=== PATIENT | female | born 1965 | race African-American/Black ===

== ENCOUNTER 2016-08-20 05:27 | Emergency (ER) | payer SELFPAY ==
[~2016-08-20] VITALS: Ht 162.6 cm; Wt 81.6 kg
[2016-08-20 06:48] LABS: Urine Bilirubin Negative (Negative); Urine Blood Negative /uL (Negative); Urine Color Yellow (Yellow); Urine Glucose Normal (Normal); Urine Ketone Negative (Negative); Urine Mucus FEW (None Seen); Urine Nitrite Negative (Negative); Urine RBC <1 /hpf (0 - 4); Urine Squamous Epithelial Cell MOD /hpf (<5); Urine Urobilinogen Normal (Negative); Urine pH 5.5 (5.0-8.0)
[2016-08-20 06:57] LABS: Basophils # (auto) 0.1 uL; Basophils % (auto) 0.7 % (0.0-2.0); DEFINITIVE VIEW TRANSMISSION; Eosinophils # (auto) 0.2 uL; Eosinophils % (auto) 2.2 % (0.0-7.0); Hemoglobin 11.8 g/dL (12.2-16.2); Lymphocytes # (auto) 4.2 uL; Lymphocytes % (auto) 47.3 % (10.0-50.0); Mean Corpuscular Hemoglobin 22.1 pg (28.0-32.0); Mean Corpuscular Hgb Conc. 31.9 g/dL (32.0-36.0); Mean Corpuscular Volume 69.4 fL (80.0-100.0); Mean Platelet Volume 8.7 fL (7.4-10.4); Monocytes # (auto) 0.6 uL; Monocytes % (auto) 6.7 % (0.0-12.0); Neutrophils # (auto) 3.8 uL; Neutrophils % (auto) 43.1 % (37.0-80.0); Platelet Count (auto) 254 10^3/uL (140-450); Red Cell Distribution Width 16.5 % (11.6-16.0); White Blood Cell 8.8 10^3/uL (4.4-10.8)
[2016-08-20 07:18] LABS: Calcium 8.1 mg/dL (8.5-10.1); Potassium 3.8 mmol/L (3.5-5.1)
[2016-08-20 07:21] LABS: Albumin 3.1 g/dL (3.4-5.0); BUN/Creatinine Ratio 16.9
[2016-08-20 07:25] LABS: Bilirubin, Total 0.2 mg/dL (0.2-1.0); Total Protein 7.7 g/dL (6.4-8.2)
[2016-08-20 13:35] VITALS: BP 169/88
== END 2016-08-20 15:21 | disposition home or self-care (01) ==
LOC: ER 05:32
DX: M54.5 Low back pain (principal); J45.909 Unspecified asthma, uncomplicated; F17.210 Nicotine dependence, cigarettes, uncomplicated; Z88.6 Allergy status to analgesic agent; Z88.8 Allergy status to other drugs, medicaments and biological substances; R10.30 Lower abdominal pain, unspecified
CPT/HCPCS: 36415; 74176; 80053; 81001; 85025

== ENCOUNTER 2018-10-08 21:20 | Emergency (ER) | payer SELFPAY ==
[~2018-10-08] VITALS: Ht 162.6 cm; Wt 81.6 kg
[2018-10-08 21:38] VITALS: BP 168/106
[2018-10-08 22:18] LABS: Eosinophils # (auto) 0.3 uL; Eosinophils % (auto) 3.6 % (0.0-7.0); Mean Corpuscular Hemoglobin 22.4 pg (28.0-32.0); Nucleated Red Blood Cells % 0.1 %
[2018-10-08 22:19] LABS: Basophils # (auto) 0 uL; Basophils % (auto) 0.7 % (0.0-2.0); Hematocrit 38.3 % (36.0-46.0); Hemoglobin 12.1 g/dL (12.2-16.2); Lymphocytes # (auto) 2.8 uL; Lymphocytes % (auto) 37.8 % (10.0-50.0); Mean Corpuscular Hgb Conc. 31.6 g/dL (32.0-36.0); Monocytes # (auto) 0.6 uL; Monocytes % (auto) 8.6 % (0.0-12.0); Neutrophils # (auto) 3.6 uL; Neutrophils % (auto) 49.3 % (37.0-80.0); Platelet Count (auto) 213 10^3/uL (140-450); Red Blood Cells 5.39 10^6/uL (4.0-5.20); Red Cell Distribution Width 15.5 % (11.8-14.3); White Blood Cell 7.3 10^3/uL (4.4-10.8)
[2018-10-08 22:35] LABS: Alanine Aminotransferase 36 U/L (13-56); Albumin 3.2 g/dL (3.4-5.0); Anion Gap 6 (5-15); Aspartate Aminotransferase 24 U/L (15-37); BUN/Creatinine Ratio 13.9; Blood Urea Nitrogen 10 mg/dL (7-18); Calcium 8.3 mg/dL (8.5-10.1); Carbon Dioxide 27 mmol/L (21-32); Chloride 110 mmol/L (98-107); GFR African American 109 mL/min; GFR Non-African American 90 mL/min; Glucose 85 mg/dL (74-106); Potassium 3.6 mmol/L (3.5-5.1); Sodium 143 mmol/L (136-145)
[2018-10-08 22:40] LABS: Alkaline Phosphatase 57 U/L (45-117); Bilirubin, Total 0.2 mg/dL (0.2-1.0); Total Protein 7.5 g/dL (6.4-8.2)
== END 2018-10-09 02:30 | disposition left against medical advice (07) ==
LOC: ER 21:20
DX: R07.89 Other chest pain (principal); Z53.21 Procedure and treatment not carried out due to patient leaving prior to being seen by health care provider
CPT/HCPCS: 36415; 70360; 71045; 80053; 84484; 85025

== ENCOUNTER 2023-09-05 09:01 | Inpatient (IN) | payer OTHER ==
[2023-09-05] VITALS (7 sets, daily range): BP systolic 123–148; BP diastolic 72–79; PULSE 60–74; RESP 14–20; TEMP 97.8–98.5; O2SAT 93–98
[~2023-09-05] VITALS: Ht 154.9 cm; Wt 73.7 kg
[2023-09-05 09:53] LABS: Basophils # (auto) 0.1 10 ^3/uL (0-0.2); Eosinophils # (auto) 0.2 10 ^3/uL (0-0.8); Hemoglobin 12.1 g/dL (12.2-16.2); Monocytes # (auto) 0.7 10 ^3/uL (0-1.3)
[2023-09-05 09:56] LABS: Basophils % (auto) 1.3 % (0.0-2.0); Hematocrit 38.2 % (36.0-46.0); Lymphocytes # (auto) 2.2 10 ^3/uL (0.4-5.4); Lymphocytes % (auto) 37.7 % (10.0-50.0); Mean Corpuscular Hemoglobin 23.2 pg (28.0-32.0); Mean Corpuscular Hgb Conc. 31.7 g/dL (32.0-36.0); Mean Corpuscular Volume 73.2 fL (80.0-100.0); Monocytes % (auto) 10.9 % (0.0-12.0); Neutrophils # (auto) 2.7 10 ^3/uL (1.6-8.6); Neutrophils % (auto) 46.1 % (37.0-80.0); Nucleated Red Blood Cells % 0.1 %; Red Blood Cells 5.23 10^6/uL (4.0-5.20); Red Cell Distribution Width 17.2 % (11.8-14.3)
[2023-09-05] MEDS: ALBUTEROL SULF 2.5 MG/0.5ML(0.5%) NEB SOLN HHN ONE (10:02)
[2023-09-05] MEDS: IPRATROPIUM BROM 0.5 MG/2.5ML INH SOL HHN ONE (10:02)
[2023-09-05 10:03] LABS: INR 1.15 (0.9-1.15); Partial Thromboplastin Time 27.9 SEC (24.5-34.5)
[2023-09-05 10:11] LABS: Alanine Aminotransferase 20 U/L (7-40); Alkaline Phosphatase 57 U/L (46-116); Anion Gap 4 (5-15); Aspartate Aminotransferase 30 U/L (13-40); BUN/Creatinine Ratio 12.7 (10.0-20.0); Bilirubin, Total 0.3 mg/dL (0.2-1.0); Blood Urea Nitrogen 13 mg/dL (9-23); Carbon Dioxide 29 mmol/L (20-30); Chloride 108 mmol/L (98-107); Glucose 83 mg/dL (74-106); Potassium 4.7 mmol/L (3.5-5.1); Sodium 141 mmol/L (136-145); Total Protein 6.9 g/dL (5.7-8.2)
[2023-09-05] MEDS: MORPHINE SULFATE 4 MG/ML SYR/VIAL IV ONE (10:29)
[2023-09-05] MEDS: methylPREDNISolone SOD SUCC 125 MG/2 ML VL IV ONE (10:29)
[2023-09-05] MEDS: ONDANSETRON HCL 4 MG/2 ML VIAL IV ONE (10:29)
[2023-09-05] MEDS: ASPirin 81 mg TAB PO ONE (10:29)
[2023-09-05] MEDS: cefTRIAXone 1GM/50ML D5W 50 ML IV ONE (10:30)
[2023-09-05] MEDS: AZITHROMYCIN 500MG/ 250ML 250 ML IV ONE (10:51)
[2023-09-05] MEDS: hydrALAZINE HCL 20 MG/ML VL IV ONE ×3 (11:17→13:15)
[2023-09-05 12:36] LABS: Urine Bacteria NONE SEEN /hpf (None Seen); Urine Blood Negative /uL (Negative); Urine Clarity HAZY (Clear); Urine Color Yellow (Yellow); Urine Protein, UAD TRACE (Negative); Urine Specific Gravity 1.021 (1.001-1.035); Urine Urobilinogen Normal (Negative); Urine WBC 29 /hpf (0 - 5); Urine pH 7.5 (5.0-8.0)
[2023-09-05] MEDS: ENALAPRILAT 1.25 MG/ML-1ML VIAL IV ONE ×2 (12:36→13:15)
[2023-09-05] MEDS: ACETAMINOPHEN 325 MG TAB PO ONE (13:08)
[2023-09-05] MEDS: LISINOPRIL 20 MG TAB PO ONE (13:15)
[2023-09-05] MEDS ORDERED: ONDANSETRON HCL 4 MG/2 ML VIAL IV PRN (14:00)
[2023-09-05] MEDS ORDERED: MORPHINE SULFATE INJ 2 MG/ml SYRG IV PRN (14:00)
[2023-09-05] MEDS ORDERED: NITROGLYCERIN 0.4 MG SL TAB SL PRN (14:00)
[2023-09-05 16:00] LABS: COVID19 ANTIGEN SOFIA FIA NEGATIVE (NEGATIVE); Rapid Influenza A Negative (Negative); Rapid Influenza B Negative (Negative)
[2023-09-05] MEDS: SODIUM CHLOR 0.9% PF (SALINE LOCK) 10ML VIAL/SYR IV SCH (16:02)
[2023-09-05] MEDS: NITROGLYCERIN 2% OINT 1GM PKG TD STA (16:02)
[2023-09-05] MEDS: HYDROcodone-ACET 5/325MG TAB PO PRN (17:12)
[2023-09-05] MEDS: ALBUTEROL SULF 2.5 MG/0.5ML(0.5%) NEB SOLN NEB SCH (18:07)
[2023-09-05] MEDS: IPRATROPIUM BROM 0.5 MG/2.5ML INH SOL NEB SCH (18:08)
[2023-09-05 19:44] LABS: Amphetamine Screen, Urine Neg (NEGATIVE)
[2023-09-05 19:45] LABS: Barbiturate Scree,Urine Neg (NEGATIVE); Benzodiazephine Screen, Urine Neg (NEGATIVE); Cannabinoid Screen, Urine Neg (NEGATIVE); Cocaine Screen, Urine Pos (NEGATIVE); Opiate Scree,Urine Pos (NEGATIVE); Phencyclidine Screen, Urine Pos (NEGATIVE)
[2023-09-05] MEDS: ATORVASTATIN 20 MG TAB PO SCH (21:57)
[2023-09-05] MEDS: methylPREDNISolone SOD SUCC 40 MG/ML VL IV SCH (22:05)
[2023-09-06] VITALS (10 sets, daily range): BP systolic 134–160; BP diastolic 57–89; PULSE 60–78; RESP 16–20; TEMP 98.1–98.6; O2SAT 94–100
[2023-09-06 05:17] LABS: Basophils # (auto) 0 10 ^3/uL (0-0.2); Eosinophils # (auto) 0 10 ^3/uL (0-0.8); Hemoglobin 11.6 g/dL (12.2-16.2); Mean Corpuscular Hgb Conc. 30.9 g/dL (32.0-36.0); Monocytes # (auto) 0.2 10 ^3/uL (0-1.3); White Blood Cell 9.4 10^3/uL (4.4-10.8)
[2023-09-06 05:19] LABS: Basophils % (auto) 0.5 % (0.0-2.0); Hematocrit 37.4 % (36.0-46.0); Lymphocytes # (auto) 1.4 10 ^3/uL (0.4-5.4); Lymphocytes % (auto) 14.3 % (10.0-50.0); Mean Corpuscular Volume 74.5 fL (80.0-100.0); Monocytes % (auto) 2.2 % (0.0-12.0); Neutrophils # (auto) 7.8 10 ^3/uL (1.6-8.6); Red Blood Cells 5.02 10^6/uL (4.0-5.20)
[2023-09-06 05:36] LABS: Alanine Aminotransferase 16 U/L (7-40); Albumin 3.8 g/dL (3.2-4.8); Alkaline Phosphatase 53 U/L (46-116); Anion Gap 7 (5-15); Aspartate Aminotransferase 14 U/L (13-40); BUN/Creatinine Ratio 10.3 (10.0-20.0); Bilirubin, Total 0.2 mg/dL (0.2-1.0); Blood Urea Nitrogen 10 mg/dL (9-23); Calcium 8.9 mg/dL (8.5-10.1); Carbon Dioxide 22 mmol/L (20-30); Chloride 107 mmol/L (98-107); Glucose 128 mg/dL (74-106); Potassium 4.3 mmol/L (3.5-5.1); Total Protein 6.9 g/dL (5.7-8.2)
[2023-09-06 05:48] LABS: Sodium 136 mmol/L (136-145)
[2023-09-06] MEDS: ASPirin 81 mg TAB PO SCH (09:38)
[2023-09-06] MEDS: DOCUSATE SOD 100 MG CAP PO PRN (09:38)
[2023-09-06] MEDS: hydrALAZINE HCL 20 MG/ML VL IV PRN (09:39)
[2023-09-06] MEDS: LISINOPRIL 20 MG TAB PO SCH (09:39)
[2023-09-06] MEDS ORDERED: ALBU108A14 IN (11:25)
[2023-09-06] MEDS ORDERED: ASPI-325 PO (11:26)
[2023-09-06] MEDS ORDERED: ATOR20TA50 PO (11:27)
[2023-09-06] MEDS ORDERED: LISI20TA56 PO (11:27)
[2023-09-06] MEDS: ACETAMINOPHEN 325 MG TAB PO PRN (13:13)
== END 2023-09-06 15:29 | disposition home or self-care (01) | DRG 199 ==
LOC: ER 09:01 → TELE 14:06 → TELE-WESTW 16:36
PROVIDERS: ADMIT Internal Medicine Pulmonary Disease; ATTEND Internal Medicine Pulmonary Disease
DX: I16.0 Hypertensive urgency (principal); J45.901 Unspecified asthma with (acute) exacerbation; I50.42 Chronic combined systolic (congestive) and diastolic (congestive) heart failure; I11.0 Hypertensive heart disease with heart failure; E78.5 Hyperlipidemia, unspecified; I25.10 Atherosclerotic heart disease of native coronary artery without angina pectoris; Z79.82 Long term (current) use of aspirin; Z86.73 Personal history of transient ischemic attack (TIA), and cerebral infarction without residual deficits; I25.2 Old myocardial infarction; R06.03 Acute respiratory distress
CPT/HCPCS: 36415; 71045; 80053; 80307; 81001; 83605; 83735; 83880; 84443; 84484; 85025; 85610; 85730; 87040; 87426; 87804; 93005; 94640; 96365; 96368; 96375; G0378; J2405